=== PATIENT | female | born 1960 | race Caucasian/White ===

== ENCOUNTER 2016-03-13 10:45 | Emergency (ER) | payer MEDICAID ==
[~2016-03-13] VITALS: Wt 75.0 kg
[~2016-03-13 10:45] MED LIST: ALBU8.5H3; ALBU8.5H3 INH; AMLO5TAB4; ASPI-664; AZIT250T94 PO; BECL8.7A; FLUO20CA22; HYDR25TA6; INSU100C3; INSU100V14; LOSA25TA47; PRED20TA PO; SIMV40TA2; [UNRECOGNIZED DRUG - CODE]
--- NOTE | 2016-03-13 12:34 | RADRPT ---
PROCEDURE: XR Chest. CLINICAL INDICATION: Cough TECHNIQUE: Chest PA. COMPARISON: No comparison available. FINDINGS: The mediastinal structures are unremarkable. The heart is normal in size and configuration. The pu lmonary vascularity is normal. The lung dexter are unremarkable. No consolidation is identified. The pleural spaces are unremarkable. The axial skeleton is unremarkable. IMPRESSION: No active intrathoracic disease. RPTAT: HGDB .Patrick Skinner MD, MD Date Time Electronically viewed and signed by .Patrick Skinner MD, on 03/13/2016 12:33 .B/
--- NOTE | 2016-03-13 12:38 | ERD ---
ER Documentation Chief Complaint Date/Time DATE: 03/13/16 TIME: 12:38 Chief Complaint COUGH AND CONGESTION FOR THE PAST 2 MONTHS. HPI This 55-year-old female who presents to the emergency department today for cough and congestion for the past 2 months. Patient states that she feels like there is something that is making her choke from her new. She had something similar a year ago and was given medication. Denies any fevers or chills. ROS All systems reviewed and are negative except as per history of present illness. Medications Home Meds Active Scripts Cetirizine Hcl* (Zyrtec*) 10 Mg Capsule, 10 MG PO DAILY, #10 TAB.CHEW Prov:VAUGHN GASTON PA-C 03/13/16 Albuterol Sulfate* (Proair HFA*) 8.5 Gm Hfa.aer.ad, 2 PUFF INH Q4, #1 INHALER Prov:VAUGHN GASTON PA-C 03/13/16 Guaifenesin-Dextromethorphan* (Robitussin* DM) 100MG/10MG/5ML Syrup, 10 ML PO Q4H Y for COUGH for 5 Days, ML Prov:VAUGHN GASTON PA-C 03/13/16 Azithromycin* (Zithromax*) 250 Mg Tablet, 250 MG PO .ZPACK DIRECTED, #6 TAB TAKE 500 MG (2 TABS) THE FIRST DAY THEN 250 MG (1 TAB) DAYS 2-5 Prov:VAUGHN GASTON PA-C 03/13/16 Albuterol Sulfate* (Proair HFA*) 8.5 Gm Hfa.aer.ad, 2 PUFF INH Q4, #1 INHALER Prov:NAVYA MIMS DO 07/28/15 Prednisone* (Prednisone*) 20 Mg Tab, 60 MG PO DAILY for 5 Days, TAB Prov:TYRA MIMSS AShelbie DO 07/28/15 Azithromycin* (Zithromax*) 250 Mg Tablet, 250 MG PO .ZPACK DIRECTED, #6 TAB TAKE 500 MG (2 TABS) THE FIRST DAY THEN 250 MG (1 TAB) DAYS 2-5 Prov:NAVYA MIMS DO 07/28/15 Reported Medications Insulin Aspart (Novolog) 100 U/Ml Cartridge 10/22/09 Insulin Regular, Human (Humulin R) 100 Units/Ml Vial 10/22/09 Calcium Carbonate/Vitamin D2 (Oyster Shell Deejay/D Tablet) 1 Tab Tablet 10/22/09 Hydrochlorothiazide (Hydrochlorothiazide) 25 Mg Tablet 10/22/09 Fluoxetine Hcl* (Fluoxetine Hcl*) 20 Mg Capsule 10/22/09 Simvastatin* (Zocor*) 40 Mg Tablet 10/22/09 Losartan Potassium* (Cozaar*) 25 Mg Tablet 10/22/09 Aspirin* (Aspirin* EC) 81 Mg Tablet. 10/22/09 Beclomethasone Dip* (Qvar 40*) 7.3 Gm Inha 10/22/09 Albuterol Sulfate* (Proair HFA*) 8.5 Gm Hfa.aer.ad 10/22/09 Amlodipine Besylate* (Norvasc*) 5 Mg Tablet 10/22/09 Allergies Allergies: Coded Allergies: No Known Allergies (Verified Allergy, Mild, 10/22/09) PMhx/Soc Medical and Surgical Hx: pt denies Surgical Hx History of Surgery: No Anesthesia Reaction: No Hx Neurological Disorder: No Hx Respiratory Disorders: Yes (ASTHMA) Hx Cardiac Disorders: Yes (HTN) Hx Psychiatric Problems: Yes (DEPRESSION) Hx Miscellaneous Medical Probl: No Hx Alcohol Use: No Hx Substance Use: No Hx Tobacco Use: No Physical Exam Vitals Vital Signs Date Time Temp Pulse Resp B/P Pulse Ox O2 Delivery O2 Flow Rate FiO2 03/13/16 10:46 97.9 101 20 161/74 95 Physical Exam Const: No acute distress Head: Atraumatic Eyes: Normal Conjunctiva ENT: Ears TMs normal. Nose no drainage. Throat no erythema no exudate. Neck: Full range of motion..~ No meningismus. Resp: Coarse breath sound bilaterally in all lung dexter. No wheezing. No absent breath sounds. Cardio: Regular rate and rhythm, no murmurs Abd: Soft, non tender, non distended. Normal bowel sounds Skin: No petechiae or rashes Neur: Awake and alert Psych: Normal Mood and Affect Results 24 hrs Patient: AIYANA FOSTER : 1960 Age: 55 Sex: F MR #: [id number] DOS: 03/13/16 0000 Ordering MD: VAUGHN GASTON PA-C Location: [facility] Room/Bed: PROCEDURE: XR Chest. CLINICAL INDICATION: Cough TECHNIQUE: Chest PA. COMPARISON: No comparison available. FINDINGS: The mediastinal structures are unremarkable. The heart is normal in size and configuration. The pulmonary vascularity is normal. The lung dexter are unremarkable. No consolidation is identified. The pleural spaces are unremarkable. The axial skeleton is unremarkable. IMPRESSION: No active intrathoracic disease. RPTAT: HGDB .Patrick Skinner MD, MD Date Time Electronically viewed and signed by .Patrick Skinner MD, MD on 03/13/2016 12:33 .B/ CC: VAUGHN GASTON PA-C Procedures/MDM Is a 55-year-old female who presents to the emergency department today complaining of cough and congestion for the past 2 months. Given the patient's age and duration of symptoms until it was appropriate to obtain a chest x-ray. Chest X-ray shows no active intrathoracic disease. There is no consolidation. Low suspicion for PE, abscess, pneumothorax, pleural effusion I have low suspicion for strep pharyngitis, peritonsillar abscess, retropharyngeal abscess, otitis media, PNA, sinusitis, abscess, meningitis, sepsis, or other acute infectious bacterial process. At this time the patient is stable for discharge and outpatient management. Patient is afebrile and otherwise well-appearing here in the emergency department. I did not feel that she required a breathing treatment. Patient will be given a prescription for azithromycin and a prior inhaler given the duration of symptoms to treat possible bronchitis. She may also have allergic rhinitis versus viral URI. I'll also give her a prescription for Zyrtec and Robitussin. At this time the patient is stable for discharge and outpatient management. Patient should follow up with their PCP in the next 1-2 days. They may return to the emergency department sooner for any persistent or worsening of symptoms. Patient understood and agreed with the plan. Departure Diagnosis: Primary Impression: Cough Condition: Fair VAUGHN GASTON PA-C Mar 13, 2016 12:38
[2016-03-13] MEDS ORDERED: UDROBDM PO (12:46)
[2016-03-13] MEDS ORDERED: ALBU8.5H3 INH (12:46)
[2016-03-13] MEDS ORDERED: AZIT250T94 PO (12:46)
[2016-03-13] MEDS ORDERED: CETI10CA PO (12:47)
== END 2016-03-13 12:59 | disposition home or self-care (01) ==
LOC: FTE 10:45
DX: R05 Cough (principal); I10 Essential (primary) hypertension; J45.909 Unspecified asthma, uncomplicated; Z79.82 Long term (current) use of aspirin; Z79.4 Long term (current) use of insulin
CPT/HCPCS: 71010; Z7502

== ENCOUNTER 2017-01-16 15:48 | Emergency (ER) | payer MEDICAID ==
[~2017-01-16] VITALS: Ht 157.5 cm; Wt 72.7 kg
[~2017-01-16 15:48] MED LIST changes: +CETI10CA PO; +LOSA25TA2; -LOSA25TA47; +UDROBDM PO
[2017-01-16 16:13] VITALS: Ht 157.5 cm; Wt 72.7 kg
--- NOTE | 2017-01-16 17:01 | ERD ---
ER Documentation Chief Complaint Chief Complaint SOB with cough x 3 days HPI this 56 YO female reports cough, w/o secretion mostly, occasional thick secretions. pt reports that symptoms are worse at night, pt states " cough attacks" Hx of AR and seasonal asthma., reports tactil fever and decreassed appetitie, difficulty sleeping r/t cough. pt reports HTN, Hypercholesteremia and DM on insulin , ROS All systems reviewed and are negative except as per history of present illness. Medications Home Meds Active Scripts Cetirizine Hcl* (Zyrtec*) 10 Mg Capsule, 10 MG PO DAILY, #10 TAB.CHEW Prov:VAUGHN GASTON PA-C 03/13/16 Albuterol Sulfate* (Proair HFA*) 8.5 Gm Hfa.aer.ad, 2 PUFF INH Q4, #1 INHALER Prov:VAUGHN GASTON PA-C 03/13/16 Guaifenesin-Dextromethorphan* (Robitussin* DM) 100MG/10MG/5ML Syrup, 10 ML PO Q4H Y for COUGH for 5 Days, ML Prov:VAUGHN GASTONC 03/13/16 Azithromycin* (Zithromax*) 250 Mg Tablet, 250 MG PO .ZPACK DIRECTED, #6 TAB TAKE 500 MG (2 TABS) THE FIRST DAY THEN 250 MG (1 TAB) DAYS 2-5 Prov:VAUGHN GASTONC 03/13/16 Albuterol Sulfate* (Proair HFA*) 8.5 Gm Hfa.aer.ad, 2 PUFF INH Q4, #1 INHALER Prov:NAVYA MIMS DO 07/28/15 Prednisone* (Prednisone*) 20 Mg Tab, 60 MG PO DAILY for 5 Days, TAB Prov:NAVYA MIMS AShelbie DO 07/28/15 Azithromycin* (Zithromax*) 250 Mg Tablet, 250 MG PO .ZPACK DIRECTED, #6 TAB TAKE 500 MG (2 TABS) THE FIRST DAY THEN 250 MG (1 TAB) DAYS 2-5 Prov:NAVYA MIMS DO 07/28/15 Reported Medications Insulin Aspart (Novolog) 100 U/Ml Cartridge 10/22/09 Insulin Regular, Human (Humulin R) 100 Units/Ml Vial 10/22/09 Calcium Carbonate/Vitamin D2 (Oyster Shell Deejay/D Tablet) 1 Tab Tablet 10/22/09 Hydrochlorothiazide (Hydrochlorothiazide) 25 Mg Tablet 10/22/09 Fluoxetine Hcl* (Fluoxetine Hcl*) 20 Mg Capsule 10/22/09 Simvastatin* (Zocor*) 40 Mg Tablet 10/22/09 Losartan Potassium* (Cozaar*) 25 Mg Tablet 10/22/09 Aspirin* (Aspirin* EC) 81 Mg Tablet. 10/22/09 Beclomethasone Dip* (Qvar 40*) 7.3 Gm Inha 10/22/09 Albuterol Sulfate* (Proair HFA*) 8.5 Gm Hfa.aer.ad 10/22/09 Amlodipine Besylate* (Norvasc*) 5 Mg Tablet 10/22/09 Allergies Allergies: Coded Allergies: No Known Allergies (Verified Allergy, Mild, 01/16/17) PMhx/Soc History of Surgery: No Anesthesia Reaction: No Hx Neurological Disorder: No Hx Respiratory Disorders: Yes (ASTHMA) Hx Cardiac Disorders: Yes (HTN) Hx Psychiatric Problems: Yes (DEPRESSION) Hx Miscellaneous Medical Probl: No Hx Alcohol Use: No Hx Substance Use: No Hx Tobacco Use: No Physical Exam Vitals Vital Signs Date Time Temp Pulse Resp B/P Pulse Ox O2 Delivery O2 Flow Rate FiO2 01/16/17 16:13 98.6 86 20 176/82 96 Vitals stable, triage notes reviewed, patient noted to have blood pressure at 176/82. Physical Exam Const: Nourished well-appearing well-hydrated 56-year-old female in no acute distress Head: Eyes: ENT: Normal External Ears, Nose and Mouth. Neck: Resp: Clear to auscultation bilaterally rales wheezes or rhonchi, no egophony , dry nonproductive cough noted Cardio: Regular rate and rhythm, no murmurs Abd: Skin: Back: Ext: No cyanosis, or edema Neur: Awake and alert Psych: Normal Mood and Affect Results 24 hrs Laboratory Tests Test 01/16/17 17:13 Bedside Glucose 394mg/dL Procedures/MDM PROCEDURE: Chest xray. CLINICAL INDICATION: Cough, shortness of breath. TECHNIQUE: Semiupright AP and lateral views of the chest were obtained COMPARISON: 03/13/2016 FINDINGS: There is stable mild enlargement of the cardiac silhouette. The lungs are well expanded and show normal vascularity. No focal opacity, pleural effusion, or pneumothorax is identified. The skeletal structures and soft tissues are unremarkable. IMPRESSION: Mild cardiomegaly. No acute pulmonary abnormality. Electronically viewed and signed by .Madelyn Rodriguez MD, MD on 01/16/2017 17: 48 This 56-year-old female presents with multiple core morbidities presents to emergency department with a cough for the last week, patient reports cough is dry, nonproductive, worse at night, patient denies fever but reports a tactile fever at times and decreased appetite, patient reports history of seasonal rhinitis as well as a variant asthma around this time a year. Patient is well- appearing with history of diabetes, blood glucose is 394 after eating today. Two-room course today includes history and physical exam, exam is unremarkable for evidence of CHF, or acute ID, plan to get chest x-ray to rule out any infiltration, atelectasis, or consolidation. This case discussed with supervising physician Dr. Chadwick in regards to blood sugar, patient is stable to treat blood sugar at home as directed by her community service representative. Chest x-ray is negative for any acute pulmonary abnormality, mild cardiomegaly is seen. Patient denies chest pain at this time, shortness of breath, dizziness, or palpitations, plan to discharge home with Tessalon 200 mg 1 tab p.o. 3 times daily. Given azithromycin related to diabetes. Instructed to follow-up with primary care physician in 48 hours, return to emergency department for chest pain, shortness of breath, dizziness, or palpitations. Patient is stable with no new complaints during ER course, clinically there is no current evidence to suggest meningitis, sepsis, acute abdomen, acute coronary syndromes, pulmonary embolism or any other emergent condition appearing to require further evaluation or hospitalization. I feel the patient is stable for discharge at this time. I have discussed results, examination findings, the treatment plan with the patient and family present prior to discharge. Indications for emergent reevaluation, side effects of medication were also discussed. All questions were answered. Patient verbalizes understanding and agrees with plan of care. Departure Diagnosis: Primary Impression: Cough Additional Impressions: Hx of diabetes mellitus History of hypertension Patient Instructions: Cough, Chronic, Uncertain Cause, (Adult) Additional Instructions: Thank you for for coming to [facility] for your care today. Please ask your nurse or provider if you have questions about your care today and do not leave until all your questions have been answered. Please use any medications given as directed and follow-up with your doctor (or the doctor you were referred to) in the next 2-3 days. If you do not have a primary care doctor you may follow up at the [facility] (listed below). You may also use motrin and tylenol as needed for fever and/or pain unless instructed otherwise by your provider or nurse. Indications for more urgent follow-up have been discussed, but you may return to the Emergency Department at ANY time for any worrisome or worsening symptoms. If you have abdominal pain, please know that no test or exam you received is perfect and you should follow up within 8 hours for continued pain. If you had any imaging studies today, such as an X-Ray or CT Scan, these studies will be reviewed later by a radiologist. You will be called if there are important findings that were not identified today, so make sure the contact information you provided at registration is correct. If you received any narcotic pain control medicine today, such as Vicodin, Morphine or Dilaudid, your coordination and judgment may be affected for a number of hours. Please do not drive or operate heavy machinery, and you may want someone to assist you at home. If you were given a prescription for narcotic medication, be aware that it is very addictive- use sparingly and only if necessary. WOO KAMINSKI Jan 16, 2017 17:01
--- NOTE | 2017-01-16 17:49 | RADRPT ---
PROCEDURE: Chest xray. CLINICAL INDICATION: Cough, shortness of breath. TECHNIQUE: Semiupright AP and lateral views of the chest were obtained COMPARISON: 03/13/2016 FINDINGS: There is stable mild enlargement of the cardiac silhouette. The lungs are well expanded and show no rmal vascularity. No focal opacity, pleural effusion, or pneumothorax is identified. The skeletal structures and soft tissues are unremarkable. IMPRESSION: Mild cardiomegaly. No acute pulmonary abnormality. RPTAT:HKMK .Madelyn Rodriguez MD, MD Date Time Electronically viewed and signed by .Madelyn Rodriguez MD, on 01/16/2017 17:48 .K/
[2017-01-16] MEDS ORDERED: AZIT250T6 PO ×2 (18:33)
[2017-01-16] MEDS ORDERED: BENZ100C70 PO (18:34)
[2017-01-16 18:43] VITALS: BP 160/76; PULSE 84; RESP 16; TEMP 98.5
== END 2017-01-16 18:44 | disposition home or self-care (01) ==
LOC: FTE 15:48
DX: R05 Cough (principal); E11.9 Type 2 diabetes mellitus without complications; I10 Essential (primary) hypertension; J45.909 Unspecified asthma, uncomplicated; Z79.4 Long term (current) use of insulin; Z79.82 Long term (current) use of aspirin
CPT/HCPCS: 71020; 82962; Z7502